=== PATIENT | female | born 1955 | race Caucasian/White ===

== ENCOUNTER 2021-11-10 17:48 | Inpatient (IN) ==
[2021-11-10] MEDS ORDERED: ACETAMINOPHEN 325 MG TABLET PO ONE (18:27)
[2021-11-10] MEDS ORDERED: ONDANSETRON 4 MG/2 ML VIAL IV ONE (18:27)
[2021-11-10 20:12] LABS: Basophils % 0.4 % (0.0-0.8); Hemoglobin 8.3 GM/DL (12.0-16.0); Immature Granulocytes % 0.6 %; Immature Granulocytes Absolute 0.03 #; Lymphocytes # 0.4 10*3/uL (1.4-4.0); Lymphocytes % 7.3 % (21.3-54.2); Mean Corpuscular HGB Conc 31.9 GM/DL (32-36); Mean Corpuscular Volume 119.3 FL (87-102); Mean Platelet Volume 11.4 FL (9.6-12.0); Monocytes # 0.4 10*3/uL (0.11-0.8); Monocytes % 8.5 % (1.7-12.7); Neutrophils % 83.2 % (38.7-73.9); Platelet Count 70 T/CUMM (130-400); Red Blood Count 2.18 MC/CUMM (3.8-5.5); Red Cell Distribution Width 17.2 % (9.3-17.3); White Blood Count 4.8 T/CUMM (4-12)
[2021-11-10 20:31] LABS: Alanine Aminotransferase 40 U/L (13-56); Albumin 1.6 G/DL (3.4-5.0); Alkaline Phosphatase 208 U/L (45-117); Aspartate Amino Transferase 127 U/L (0-37); Blood Urea Nitrogen 9 MG/DL (7-18); Calcium 8.1 MG/DL (8.5-10.1); Carbon Dioxide 20 MMOL/L (21-32); Chloride 109 MMOL/L (98-107); Glucose 70 MG/DL (74-106); Osmolality,Calculated 271.7 MOS/KG (273-304); Potassium 5.3 MMOL/L (3.5-5.1); Sodium 138 MMOL/L (136-145); Total Protein 5.8 G/DL (6.4-8.2)
[2021-11-10] MEDS ORDERED: SODIUM CHLORIDE 0.9% 1,000 ML IV STA ×2 (20:37→20:39)
[2021-11-10 20:38] LABS: Lactic Acid 5.5 MMOL/L (0.4-2.0)
[2021-11-10] MEDS ORDERED: NOREPINEPHRINE 8 MG in SODIUM CHLORIDE 0.9% 242 ML IV PRN (20:49)
[2021-11-10 21:11] LABS: Granular Casts,Urine 16 /LPF (0-1); Mucus,Urine Many /LPF (Occasional); RBC,Urine 25-30 /HPF (0-4)
[2021-11-10 21:12] LABS: Bilirubin,Urine Large mg/dL (Negative); Blood, Urine Large mg/dL (Negative); Glucose,Urine (UA) 100 mg/dL (Negative); Ketones,Urine 15 mg/dL (Negative); Protein,Urine 100 mg/dL (Negative); Urine Appearance Clear (Clear); Urine Color Orange (Yellow); Urine Urobilinogen 0.2 eU/dL (<2.0)
[2021-11-10 21:13] LABS: Nitrite,Urine Positive (Negative)
[2021-11-10] MEDS ORDERED: VANCOMYCIN INJ 1,000 MG in SODIUM CHLORIDE 0.9% 250 ML IV STA (21:22)
[2021-11-10] MEDS ORDERED: PIPERACILLIN/TAZOBACTAM 3,375 MG in SODIUM CHLORIDE 0.9% 100 ML IV STA (21:22)
[2021-11-10] MEDS ORDERED: LACTULOSE 320 GM/480 ML BOTTLE RECTAL ONE (21:29)
[2021-11-10 21:51] LABS: Band Neutrophils 19 % (0-10); Lymphocytes 6 % (20-55); Total Cells Counted 100
[2021-11-10 21:52] LABS: Acanthocytes 2+; Anisocytosis 2+; Atypical Lymphocytes Moderate
[2021-11-10 21:53] LABS: Platelet Estimate Decreased
[2021-11-10] MEDS ORDERED: ALBUTEROL 2.5 MG/3 ML NEB RESP TX PRN (21:56)
[2021-11-10] MEDS ORDERED: ONDANSETRON 4 MG/2 ML VIAL IV PRN (21:56)
[2021-11-10] MEDS ORDERED: DEXTROSE 50% 25 GM/50 ML SYRINGE IV STA (22:08)
[2021-11-10] MEDS ORDERED: NOREPINEPHRINE 4 MG/4 ML VIAL IV ONE (22:31)
[2021-11-10] MEDS: HYDROCORTISONE 100 MG VIAL IV SCH (22:40)
[2021-11-10] MEDS ORDERED: KETOROLAC 30 MG/1 ML VIAL IV PRN (23:27)
[2021-11-10] MEDS ORDERED: MAGNESIUM SULF RIDER 2 GM/50 ML PREMIX IV PRN (23:28)
[2021-11-10] MEDS ORDERED: MAGNESIUM SULF RIDER 4 GM/100 ML PREMIX IV PRN (23:28)
[2021-11-10] MEDS ORDERED: ALBUTEROL/IPRATROPIUM 3 ML NEB RESP TX ONE (23:38)
[2021-11-11] MEDS: DEXTROSE 5% NACL 0.9% 1,000 ML IV SCH ×2 (00:05→05:44)
[2021-11-11] MEDS ORDERED: PHENYLEPHRINE DRIP 40 MG/250 ML PREMIX IV ONE (00:24)
[2021-11-11] MEDS: PHENYLEPHRINE DRIP 40 MG/250 ML PREMIX IV PRN ×6 (00:29→13:12)
[2021-11-11] MEDS ORDERED: SODIUM BICARBONATE 50 MEQ/50 ML VIAL IV ONE ×3 (00:35→10:18)
[2021-11-11 01:13] LABS: Hematocrit 19.4 VOL% (35.7-47.0)
[2021-11-11 01:21] LABS: Hemoglobin 5.9 GM/DL (12.0-16.0)
[2021-11-11] MEDS ORDERED: SODIUM CHLORIDE 0.9% 1,000 ML IV PRN (01:23)
[2021-11-11 01:32] LABS: Basophils % 0.3 % (0.0-0.8); Hematocrit 20.5 VOL% (35.7-47.0); Immature Granulocytes % 0.3 %; Immature Granulocytes Absolute 0.03 #; Lymphocytes # 0.5 10*3/uL (1.4-4.0); Lymphocytes % 5.1 % (21.3-54.2); Mean Corpuscular HGB Conc 31.2 GM/DL (32-36); Mean Corpuscular Volume 122.8 FL (87-102); Mean Platelet Volume 10.8 FL (9.6-12.0); Monocytes # 0.4 10*3/uL (0.11-0.8); Monocytes % 4.7 % (1.7-12.7); Neutrophils % 89.6 % (38.7-73.9); Platelet Count 69 T/CUMM (130-400); Red Blood Count 1.67 MC/CUMM (3.8-5.5); Red Cell Distribution Width 16.9 % (9.3-17.3); White Blood Count 9.5 T/CUMM (4-12)
[2021-11-11 01:40] LABS: Hemoglobin 6.4 GM/DL (12.0-16.0)
[2021-11-11] MEDS: ALBUTEROL/IPRATROPIUM 3 ML NEB RESP TX SCH ×3 (01:47→14:15)
[2021-11-11 02:33] LABS: Acanthocytes 1+; Band Neutrophils 7 % (0-10); Lymphocytes 4 % (20-55); Macrocytosis 1+; Metamyelocytes 4 %; Platelet Estimate Decreased; Polychromasia 1+; Total Cells Counted 100
[2021-11-11] MEDS ORDERED: PANTOPRAZOLE 40 MG VIAL IV SCH ×2 (04:30→09:00)
[2021-11-11] MEDS ORDERED: PIPERACILLIN/TAZOBACTAM 3,375 MG in SODIUM CHLORIDE 0.9% 100 ML IV SCH (05:00)
[2021-11-11] MEDS ORDERED: CALCIUM GLUCONATE RIDER 1,000 MG/50 ML PREMIX IV ONE (05:08)
[2021-11-11] MEDS: HYDROCORTISONE 100 MG VIAL IV SCH ×2 (05:43→14:47)
[2021-11-11] MEDS ORDERED: VASOPRESSIN 100 UNITS in SODIUM CHLORIDE 0.9% 95 ML IV PRN (06:17)
[2021-11-11 06:23] VITALS: BP 89/45
[2021-11-11 07:31] LABS: INR 2.7; PT Patient Result 28.2 SECS (10.5-12.0); Partial Thromboplastin Time 58.9 SECS (23.7-32.9)
[2021-11-11 07:52] LABS: Albumin 1.6 G/DL (3.4-5.0); Calcium 7.7 MG/DL (8.5-10.1); Osmolality,Calculated 281.1 MOS/KG (273-304); Potassium 3.9 MMOL/L (3.5-5.1); Total Protein 5.4 G/DL (6.4-8.2)
[2021-11-11 07:57] LABS: Bilirubin,Total 15.6 MG/DL (0.20-1.00)
[2021-11-11 09:55] LABS: Arterial Base Excess iSTAT -13 MMOL/L (-2.5-2.5); Arterial Bicarbonate iSTAT 13.4 MMOL/L (20-26); Arterial O2 Saturation iSTAT 69 % (95-100); Arterial PCO2 iSTAT 32 MM HG (35-48); Arterial PO2 iSTAT 42 MM HG (80-95); Arterial Total CO2 iSTAT 14 MMO/L (23-27); Arterial pH iSTAT 7.231 (7.35-7.45)
[2021-11-11] MEDS: LACTULOSE 320 GM/480 ML BOTTLE RECTAL SCH ×2 (10:24→18:29)
[2021-11-11] MEDS ORDERED: SODIUM BICARB INJ 100 MEQ in DEXTROSE 5% 1,000 ML IV SCH (11:00)
[2021-11-11] MEDS ORDERED: FAMOTIDINE 20 MG/2 ML VIAL IV SCH (11:00)
[2021-11-11] MEDS ORDERED: CIPROFLOXACIN INJ 400 MG/200 ML PREMIX IV SCH (11:00)
[2021-11-11] MEDS ORDERED: metroNIDAZOLE INJ 500 MG/100 ML PREMIX IV SCH (12:00)
[2021-11-11] MEDS ORDERED: MEROPENEM 500 MG in SODIUM CHLORIDE 0.9% 100 ML IV SCH (12:30)
[2021-11-11 13:25] LABS: Basophils % 0.2 % (0.0-0.8); Hematocrit 28.8 VOL% (35.7-47.0); Hemoglobin 9.2 GM/DL (12.0-16.0); Immature Granulocytes % 0.7 %; Immature Granulocytes Absolute 0.13 #; Lymphocytes # 0.6 10*3/uL (1.4-4.0); Lymphocytes % 3.3 % (21.3-54.2); Mean Corpuscular HGB Conc 31.9 GM/DL (32-36); Mean Corpuscular Volume 112.5 FL (87-102); Mean Platelet Volume 10.7 FL (9.6-12.0); Monocytes # 1.5 10*3/uL (0.11-0.8); Monocytes % 8.1 % (1.7-12.7); NRBC # 0.03 10*3/uL; Neutrophils % 87.7 % (38.7-73.9); Platelet Count 88 T/CUMM (130-400); Red Blood Count 2.56 MC/CUMM (3.8-5.5); Red Cell Distribution Width 24.6 % (9.3-17.3); White Blood Count 18.4 T/CUMM (4-12)
[2021-11-11 13:51] LABS: Anisocytosis 3+; Band Neutrophils 40 % (0-10); Lymphocytes 3 % (20-55); Nucleated Red Blood Cells 1 (0-5); Platelet Estimate Decreased; Poikilocytosis 2+; Polychromasia 1+; Total Cells Counted 100
[2021-11-11 13:52] LABS: Acanthocytes 1+; Basophilic Stippling 1+; Burr Cells 1+; Osmolality,Calculated 289.6 MOS/KG (273-304); Potassium 3.8 MMOL/L (3.5-5.1); Schistocytes Few; Target Cells 1+
[2021-11-11] MEDS ORDERED: LACTULOSE 20 GM/30 ML UDCUP PO SCH (15:00)
[2021-11-11] MEDS ORDERED: VANCOMYCIN INJ 1,000 MG in SODIUM CHLORIDE 0.9% 250 ML IV SCH (22:00)
== END 2021-11-11 18:20 | disposition hospice, home (50) | DRG 871 ==
LOC: N.ED 17:48 → N.EDINP 21:49 → N.CC 11-11 00:12
PROVIDERS: ADMIT Family Medicine; ATTEND Family Medicine